=== PATIENT | male | born 1950 | race Caucasian/White ===

== ENCOUNTER 2017-03-14 09:54 | Day surgery (SDC) | payer MEDICARE ==
[~2017-03-14] VITALS: Ht 170.2 cm; Wt 106.6 kg
[~2017-03-14 09:54] MED LIST: ASPIRIN CHILDRE81 M1 PO; ASPIRIN EC325 MG PO; ATENOLOL50 MG PO; ATIVAN GENERIC0.5 MG PO; AUGMENTIN 500 M1 TAB PO; CRESTOR40 MG PO; FINASTERIDE5 M1 PO; HYDRALAZINE50 MG PO; IMDUR 30MG. TAB30 MG PO; LOSARTAN POTASS50 MG PO; METOPROLOL TART50 MG PO; PHENTERMINE H37.5 MG PO; PLAVIX 75MG TAB75 MG PO; SIMVASTATIN80 MG PO; TAMSULOSIN HYD0.4 MG PO; ZETIA10 MG PO
--- NOTE | 2017-03-14 11:46 | Operative Note ---
Upper GI Endoscopy Procedure date: 03/14/17 Date of : 48 Procedure:Upper GI Endoscopy Esophagogastroduodenoscopy with cold biopsies and TTS balloon dilation Indications: Mr. Ortez is a 67-year-old gentleman who has had noncardiac chest pain and tightness for the last 2 years. He also has some dyspnea especially with exertion. He has occasional nausea. He has had dysphagia at times with liquids or solids with esophageal spasm. He has had some heartburn and reflux. He has been on omeprazole for several years. He reports gassiness and bloating. He has no early satiety, belching her globus sensation. He does use TUMS when necessary. He does have some bowel urgency with obstipation. He did have slightly elevated liver chemistries with ALT 63 previously. His sedimentation rate was 17. The patient did undergo cardiac evaluation including catheterization which was essentially normal showing no evidence of coronary disease. Performing Provider: Nelly Soto MD Referring Provider: Sourav Oakley M.D. Sedation: MAC sedation Procedure: Prior to the procedure, a history and physical exam was performed, and patients medications and allergies were reviewed. The risks and benefits of the procedure and the sedation options and risks were discussed with the patient. All questions were answered and informed consent was obtained. The patient was brought to the procedure room. Patient identification and proposed procedure were verified by the physician and the nurse. The patient was placed in a left lateral decubitus position and the scope was passed under direct vision. Throughout the procedure, the patient's blood pressure, pulse, and oxygen saturations were monitored continuously. The endoscope was introduced through the mouth, and advanced to the second part of duodenum. The upper GI endoscopy was accomplished without difficulty. The patient tolerated the procedure well. Findings: The scope was passed directly into the upper esophagus and advanced to the third portion of the duodenum. The post bulbar duodenum and duodenal bulb were normal with normal mucosa and conniventes. The scope was withdrawn through a normal duodenal bulb and pylorus into the stomach. There was evidence of nodular linear gastropathy/reactive gastropathy with some bile reflux. The remainder of the antrum, body and fundus of the stomach were grossly normal. Upon retroflexion there was no hiatal hernia. 2 biopsies were taken in the antrum and along the lesser curvature for histology. There was a single gastric polyp along the posterior wall and body of the stomach removed via cold biopsy. The scope was then withdrawn into the esophagus. There was a single short tongue of salmon- colored mucosa that was biopsied. There was no evidence of reflux esophagitis or Jain's. There were strong tertiary contractions and evidence of moderate esophageal dysmotility. The entire esophagus was dilated to 60 Icelandic/20 mm with a TTS have metastatic balloon. There was some resistance at the cricopharyngeus. The remainder of the esophageal mucosa was normal. Immediate complications: None EBL (ml): 0 Impression: 1. Nonerosive gastroesophageal reflux disease with moderate esophageal dysmotility/esophageal dyskinesia and cricopharyngeal spasm status post dilation to 20 mm 2. Linear reactive nodular gastritis/gastropathy 3. Small gastric polyp Recommendations: I will follow up the biopsies. I do feel that the patient has functional gastroesophageal reflux disease with esophageal spasm. We will discuss additional dietary measures and treatment options. I will proceed with screening colonoscopy. at [id number]
--- NOTE | 2017-03-14 12:07 | Operative Note ---
Colonoscopy ([facility]) Procedure date: 03/14/17 Date of : 48 Procedure:Colonoscopy Colonoscopy with cold snare polypectomy Indications: Mr. Ortez is a 67-year-old gentleman who is here for screening/surveillance colonoscopy. He does have some loose bowel movements with urgency and incomplete evacuation. He also has some bloating. He reports no rectal bleeding, weight loss or family history of colon cancer. He has had colonic polyps. His last colonoscopy was 5 years ago. Performing Provider: Nlely Soto MD Referrring Provider: Sourav Oakley M.D. Sedation: MAC sedation Procedure: Prior to the procedure, a history and physical exam was performed, and patient medications and allergies were reviewed. The risks and benefits of the procedure and the sedation options and risks were discussed with the patient. All questions were answered and informed consent was obtained. Patient identification and proposed procedure were verified by the physician and the nurse. The patient was placed in a left lateral decubitus position. Throughout the procedure, the patient's blood pressure, pulse, and oxygen saturations were monitored continuously. Findings: On digital rectal examination there was normal rectal tone. There were no external hemorrhoids. The prostate was 2+, smooth, soft, symmetric without nodules. The colonoscope was introduced through the anal canal to the rectum and advanced to the cecum. The ileocecal valve and appendiceal orifice were identified. The scope was advanced a short distance into the ileum which appeared grossly normal. The scope was then withdrawn into the colon. There were 7 colon polyps identified in the cecum 1, ascending 2, transverse 3 and descending 1. These ranged in size from 4-8 mm and were all removed via cold snare polypectomy. The remaining cecum, ascending, transverse, descending, sigmoid and rectum were grossly normal. There were no other mucosal abnormalities identified. Upon retroflexion within the rectum there were grade 1 internal hemorrhoids. Impressions: 1. Colonic polyps 7 2. Grade 1 internal hemorrhoids Recommendations: I will follow up the polyp pathology and recommend repeat colonoscopy again in 3 years based upon the polyp histology. I would encourage fiber supplementation on a long-term daily maintenance basis. Complications: None EBL (ml): 0 at 1206
[2017-03-14 13:48] VITALS: BP 137/74
== END 2017-03-14 13:16 | disposition home or self-care (01) ==
LOC: SDC 09:54
PROVIDERS: Internal Medicine Gastroenterology
PROC: 0DBK8ZX Excision of Ascending Colon, Via Natural or Artificial Opening Endoscopic, Diagnostic (ICD-10-PCS; 2017-03-14)
PROC: 0DBL8ZX Excision of Transverse Colon, Via Natural or Artificial Opening Endoscopic, Diagnostic (ICD-10-PCS; 2017-03-14)
PROC: 0DBM8ZX Excision of Descending Colon, Via Natural or Artificial Opening Endoscopic, Diagnostic (ICD-10-PCS; 2017-03-14)
PROC: 0DBH8ZX Excision of Cecum, Via Natural or Artificial Opening Endoscopic, Diagnostic (ICD-10-PCS; 2017-03-14)
PROC: 0DB68ZX Excision of Stomach, Via Natural or Artificial Opening Endoscopic, Diagnostic (ICD-10-PCS; 2017-03-14)
PROC: 0D758ZZ Dilation of Esophagus, Via Natural or Artificial Opening Endoscopic (ICD-10-PCS; 2017-03-14)
PROC: 0DB78ZX Excision of Stomach, Pylorus, Via Natural or Artificial Opening Endoscopic, Diagnostic (ICD-10-PCS; principal; 2017-03-14 11:00)
DX: K21.9 Gastro-esophageal reflux disease without esophagitis (principal); K22.4 Dyskinesia of esophagus; J39.2 Other diseases of pharynx; K31.7 Polyp of stomach and duodenum; D12.0 Benign neoplasm of cecum; K31.9 Disease of stomach and duodenum, unspecified; D12.4 Benign neoplasm of descending colon; K29.60 Other gastritis without bleeding; K64.0 First degree hemorrhoids; Z87.19 Personal history of other diseases of the digestive system; Z79.84 Long term (current) use of oral hypoglycemic drugs; Z79.82 Long term (current) use of aspirin; Z79.899 Other long term (current) drug therapy
CPT/HCPCS: C1726

== ENCOUNTER → 2017-04-01 | Outpatient (CLI) | payer MEDICARE ==
--- NOTE | 2017-04-01 09:58 | RADIOLOGY REPORT PS360 ---
CT CHEST W/O CONTRAST HISTORY: DYSPNEA ON EXERTION ORDERING PHYSICIAN: ANKIT SRINIVASAN MD PATIENT AGE: 67 years TECHNIQUE: Helical acquisition obtainedwithout contrast. Axial, sagittal, and coronal reformatted images are generated and reviewed. COMPARISON: Radiograph of 01/29/2016 FINDINGS: Atherosclerotic changes are present within the aorta. There has been prior median sternotomy with CABG. There are severe coronary artery calcifications.. There is mild dilatation of the ascending aorta measuring up to 4.6 cm in maximum AP dimension and 4.2 cm transverse.. No mediastinal or hilar mass evident. Normal heart size. No pericardial effusion apparent. The lungs are clear. No obvious emphysematous changes. No suspicious pulmonary nodules or effusions. Upper abdominal images shows a 12 mm isodense lesion within the left hepatic lobe may represent hepatic cysts. There are degenerative changes in the thoracic spine. IMPRESSION: 1. Mild fusiform dilatation of the ascending aorta measuring up to 4.6 cm. 2. Prior CABG with coronary artery disease. 3. Probable hepatic cyst. 4. Otherwise negative CT chest without contrast
[2017-04-01 11:35] VITALS: BP 147/84
[2017-04-01 11:45] VITALS: BP 167/90
== END ==
LOC: RAD 08:21 → RT 10:00
DX: R06.09 Other forms of dyspnea (principal)